=== PATIENT | female | born 1975 | race Caucasian/White ===

== ENCOUNTER 2019-01-24 15:59 | Emergency (ER) | payer OTHER ==
[~2019-01-24] VITALS: Ht 160 cm; Wt 74.8 kg
--- OUTSIDE RECORDS SUMMARY | 2019-01-24 16:02 | XMS REPORT ---
Author Author Admin, Chalmers Organization Unknown Address Unknown Phone Unavailable PROBLEMS Condition Status Date Provider Notes Tinea corporis active Connie Funez Pelvic pain, acute active Grace [place] UTI, acute active Grace [place] Pelvic inflammatory disease, acute active Connie Funez UTI (urinary tract infection) completed - Connie Funez Bacterial vaginitis active Connie Funez HSV active Connie Funez Infection skin and soft tissue completed - Connie Funez Mariia of vagina completed - Connie Funez Bacterial vaginitis completed - Connie Funez Screening visit for sexually trans dis active Connie Funez BMI 28.0-28.9 active Senait Leti Overweight active Senait Leti Sacroiliac joint pain, left active Senait Leti Breast pain, left completed - Connie Funez Vaginal discharge completed - Senait Leti Bacterial vaginitis completed - Senait Leti Abnormal genitourinary finding completed - Connie Funez Hx of ovarian cyst active Connie Funez Routine gynecological exam completed - Senait Leti General counseling for initiation of other contraceptive measures completed - Connie Funez Vaginitis and vulvovaginitis, unspecified completed - Connie Funez Routine gynecological examination completed - Connie Funez ENCOUNTERS Date Type Provider Location Encounter Diagnosis - Ambulatory Encounter Connie Funez Connie Funez [facility] UNK - Ambulatory Encounter Connie Funez Connie Funez [facility] UNK - Ambulatory Encounter Connie Blancojada Monalisa Pedro Amandara Cueva [facility] Tinea corporis - Ambulatory Encounter Grace Radha Garcia [facility] UNK - Ambulatory Encounter Amanda Boudreaux Alyssia Oreilly Monalisa Chinmay Hart [facility] UNK - Ambulatory Encounter Amanda Boudreaux Connie Funez Connie Funez Alyssia Oreilly Monalisa Chinmay [place] [facility] Contact Center UNK - Ambulatory Encounter Grace Radha Edwards Radha [facility] UNK - Ambulatory Encounter Grace Edwards Radha [facility] UNK - Ambulatory Encounter Grace Radha Garcia [facility] UNK - Ambulatory Encounter Grace Radhalizandro Edwards Radha Amanda Cueva [facility] UTI, acutePelvic pain, acute - Ambulatory Encounter Clariceronak Wright [facility] Services UNK - Ambulatory Encounter Clariceronak Guevarah Funez Alyssia Oreilly Lorrie Liriano [facility] Contact Center UNK - Ambulatory Encounter Connie Guevarah Funez [facility] UNK - Ambulatory Encounter Clarice Sanchezarleth Crooks Nelson [facility] UNK - Ambulatory Encounter Clarice Nelson [facility] UNK - Ambulatory Encounter Connie Funez [facility] UNK - Ambulatory Encounter Connie Funez [facility] UNK - Ambulatory Encounter Connie Funez [facility] UNK - Ambulatory Encounter Connie Sheldon Pedro [facility] UTI (urinary tract infection)Pelvic inflammatory disease, acute - Ambulatory Encounter Connie Funez [facility] HSVBacterial vaginitis - Ambulatory Encounter Connie Funez [facility] UNK - Ambulatory Encounter Connie Funez [facility] UNK - Ambulatory Encounter Connie Funez [facility] UTI (urinary tract infection) - Ambulatory Encounter Connie Funez [facility] UNK - Ambulatory Encounter Connie Funez [facility] UNK - Ambulatory Encounter Connie Wright [facility] Bacterial vaginitisCandida of vaginaInfection skin and soft tissueHSVBacterial vaginitisUTI (urinary tract infection) - Ambulatory Encounter Connie Funez Connie Funez Monalisa White [facility] UNK - Ambulatory Encounter Connie Funez Connie Funez [facility] UNK - Ambulatory Encounter Monalisa White [facility] UNK - Ambulatory Encounter Monalisa White [facility] UNK - Ambulatory Encounter Connie Funez Connie Funez [facility] UNK - Ambulatory Encounter Connie Funez Connie Funez [facility] UNK - Ambulatory Encounter Connie Funez Connie Funez Talya Marley [facility] Infection skin and soft tissue - Ambulatory Encounter Senait Landeros [facility] Connie Funez Connie Funez [facility] UNK - Ambulatory Encounter Connie Funez Connie Funez [facility] Bacterial vaginitisCandida of vagina - Ambulatory Encounter Connie Funez Connie Funez [facility] UNK - Ambulatory Encounter Connie Funez Connie Funez [facility] UNK - Ambulatory Encounter Connie Funez Connie Funez Monalisa Pedro [facility] General counseling for initiation of other contraceptive measuresAbnormal genitourinary findingBreast pain, leftScreening visit for sexually trans disBacterial vaginitis - Ambulatory Encounter Senait Landeros [facility] UNK - Ambulatory Encounter [facility] En[facility] Fax Status [facility] - Ambulatory Encounter Fax Status [facility] - Ambulatory Encounter Fax Status [facility] UNK - Ambulatory Encounter Fax Status [facility] UNK - Ambulatory Encounter Fax Status [facility] UNK - Ambulatory Encounter Fax Status [facility] UNK - Ambulatory Encounter Fax Status [facility] UNK - Ambulatory [facility] - Ambulatory Encounter Fax Status [facility] - Ambulatory Encounter F[facility] Status [facility] Fax Status [facility] - Ambulatory Encounter Senait Leti Senait Leti [facility] UNK - Ambulatory Encounter Senait Leti Sen[facility] Leti [facility] - Ambulatory Encounter Senait Leti Senait Leti [facility] - Ambulatory Encounter Senait Leti Senait Leti Rajani Angel Johnsonalee Jhaveri Cliff Robin [facility] Routine gynecological examBacterial vaginitisVaginal dischargeBreast pain, leftSacroiliac joint pain, leftOverweightBMI 28.0-28.9 - Ambulatory Encounter Rajani Wright [facility] UNK - Ambulatory Encounter Connie Funez [facility] UNK - Ambulatory Encounter Connie Funez [facility] UNK - Ambulatory Encounter Grace Clintontier [facility] UNK - Ambulatory Encounter Grace Garcia [facility] UNK - Ambulatory Encounter Grace Garcia [facility] UNK - Ambulatory Encounter Grace Garcia [facility] UNK - Ambulatory Encounter Grace Garcia [facility] UNK - Ambulatory Encounter Grace Wright [facility] Vaginal discharge - Ambulatory Encounter Isabel Velazquez [facility] UNK - Ambulatory Encounter Connie Funez [facility] Bacterial vaginitis - Ambulatory Encounter Connie Funez [facility] UNK - Ambulatory Encounter Connie Funez Connie Funez [facility] UNK - Ambulatory Encounter Connie Guevarah Funez Shantal Malhotra [facility] Vaginitis and vulvovaginitis, unspecifiedBacterial vaginitis - Ambulatory Encounter Shantal Malhotra [facility] UNK - Ambulatory Encounter Grace Garcia [facility] UNK - Ambulatory Encounter Grace Garcia [facility] UNK - Ambulatory Encounter Shantal [facility]illy [facility] UNK - Ambulatory Encounter Connie Funez Connie Funez [facility] UNK - Ambulatory Encounter Connie Funez Connie Funez [facility] UNK - Ambulatory Encounter Connie Funez Connie Funez Britt Tabares [facility] Abnormal genitourinary finding - Ambulatory Encounter Shantal Malhotra [facility] UNK - Ambulatory Encounter Connie Funez Connie Funez [facility] UNK - Ambulatory Encounter Connie Funez Connie Funez [facility] UNK - Ambulatory Encounter Monalisa Pedro [facility] UNK - Ambulatory Encounter Connie Funez Connie Funez [facility] UNK - Ambulatory Encounter Connie Funez Connie Funez [facility] UNK - Ambulatory Encounter Connie Funez Connie Funez [facility] UNK - Ambulatory Encounter Connie Funez Connie Funez Aida Vo Monalisa Pedro Amandara Boudreaux [facility] Routine gynecological examinationGeneral counseling for initiation of other contraceptive measuresRoutine gynecological examHx of ovarian cyst - Ambulatory Encounter Grace Clintontier [facility] UNK - Ambulatory Encounter Mike [facility] Grace Clintontier [facility] UNK - Ambulatory Encounter Amanda Boudreaux [facility] UNK - Ambulatory Encounter Mike Garcia [facility] OB Vaginitis and vulvovaginitis, unspecified - Ambulatory Encounter Mike Garcia [facility] UNK - Ambulatory Encounter Mike Garcia [facility] UNK - Ambulatory Encounter Mike Garcia [facility] UNK - Ambulatory Encounter Rajani Bermudez [facility] UNK - Ambulatory Encounter Mike Garcia Dona Nguyen [facility] Routine gynecological examination VITAL SIGNS No Information Available Allergies No Known Allergy Information REASON FOR REFERRAL Start Date - End Date Service - Ultrasound - Transvaginal - Ultrasound - Breast - Mammogram - Diagnostic RESULTS Date Observation Value Provider Reference Range Interpretation Location urine culture Multiple organisms present, each less than 10,000 [facility] [address] [facility] [id number] John Gupta glucose, urine, semiquantitative negative Amanda Cueva " specific gravity, urine 1.020 Amanda Cueva " protein, urine, semiquantitative (dipstick) negative Amanda Cueva " leukocyte esterase, urine, by dipstick negative Amanda Cueva " bilirubin, urine negative Amanda Cueva " blood in urine (hemoglobin) by dipstick negative Amanda Cueva " urobilinogen, urine, semiquantitative (dipstick) negative Amanda Cueva " appearance, urine clear Amanda Cueva " ketones, urine, by test strip negative Amanda Cueva " pH, urine, semiquantitative 5.0 Amanda Cueva " nitrite, urine, semiquantitative negative Amanad Cueva " urine color light yellow Amanda Cueva " beta HCG, urine, semiquantitative negative Amanda Cueva Neisseria gonorrhoeae DNA probe Negative [facility] Negative " chlamydia DNA probe Negative [facility] Negative " trichomonas vaginalis, urine Negative [facility] Negative urine culture Escherichia coli [facility] Abnormal glucose, urine, semiquantitative negative Amanda Cueva " specific gravity, urine 1.025 Amanda Cueva " protein, urine, semiquantitative (dipstick) trace Amanda Cueva " leukocyte esterase, urine, by dipstick negative Amanda Cueva " bilirubin, urine 1+ Amanda Cueva " blood in urine (hemoglobin) by dipstick negative Amanda Cueva " urobilinogen, urine, semiquantitative (dipstick) negative Amanda Cueva " appearance, urine clear Amanda Cueva " ketones, urine, by test strip negative Amanda Cueva " pH, urine, semiquantitative 5.0 Amanda Cueva " nitrite, urine, semiquantitative negative Aamnda Cueva " urine color orange Amanda Cueva " beta HCG, urine, semiquantitative negative Amanda Cueva Neisseria gonorrhoeae DNA probe Negative [facility] Negative " chlamydia DNA probe Negative [facility] Negative urine culture No growth [facility] beta HCG, urine, semiquantitative negative Connie Funez " specific gravity, urine 1.025 Monalisa Pedro " pH, urine, semiquantitative 6.0 Monalisa Pedro " glucose, urine, semiquantitative negative Monalisa Pedro " bilirubin, urine negative Monalisa Pedro " ketones, urine, by test strip negative Monalisa Pedro " blood in urine (hemoglobin) by dipstick 2+ Monalisa Pedro " protein, urine, semiquantitative (dipstick) negative Monalisa Pedro " urobilinogen, urine, semiquantitative (dipstick) negative Monalisa Pedro " nitrite, urine, semiquantitative negative Monalisa Pedro " leukocyte esterase, urine, by dipstick negative Monalisa Pedro " appearance, urine clear Monalisa Pedro " urine color yellow Monalisa Pedro Neisseria gonorrhoeae DNA probe Negative [facility] Negative " chlamydia DNA probe Negative [facility] Negative " trichomonas vaginalis, urine Negative [facility] Negative urine culture Escherichia coli [facility] Abnormal specific gravity, urine 1.005 Rajani Wright " pH, urine, semiquantitative 5.0 Rajani Wright " glucose, urine, semiquantitative negative Rajani Wright " bilirubin, urine negative Rajani Wright " ketones, urine, by test strip negative Rajani Wright " blood in urine (hemoglobin) by dipstick 5 Rajani Wright " protein, urine, semiquantitative (dipstick) 30 Rajani Wright " urobilinogen, urine, semiquantitative (dipstick) 4.0 Rajani Wright " nitrite, urine, semiquantitative positive Rajani Wright " leukocyte esterase, urine, by dipstick 10 Rajani Wright " appearance, urine clear Rajani Wright " urine color yellow Rajani Wright glucose, urine, semiquantitative negative Talya Marley " bilirubin, urine negative Talya Marley " ketones, urine, by test strip negative Talya Marley " blood in urine (hemoglobin) by dipstick negative Talya Marley " protein, urine, semiquantitative (dipstick) negative Talya Marley " urobilinogen, urine, semiquantitative (dipstick) negative Talya Marley " nitrite, urine, semiquantitative negative Talya Marley " leukocyte esterase, urine, by dipstick negative Talya Marley " appearance, urine clear Talya Marley " urine color yellow Talya Marley Neisseria gonorrhoeae DNA probe Negative [facility] Negative " chlamydia DNA probe Negative [facility] Negative " trichomonas vaginalis, urine Negative [facility] Negative pH, urine, semiquantitative 6.0 Monalisa Pedro " specific gravity, urine 1.005 Monalisa Pedro " glucose, urine, semiquantitative negative Monalisa Pedro " bilirubin, urine negative Monalisa Pedro " ketones, urine, by test strip negative Monalisa Pedro " blood in urine (hemoglobin) by dipstick negative Monalisa Pedro " protein, urine, semiquantitative (dipstick) negative Monalisa Pedro " urobilinogen, urine, semiquantitative (dipstick) negative Monalisa Pedro " nitrite, urine, semiquantitative negative Monalisa Pedro " leukocyte esterase, urine, by dipstick trace Monalisa Pedro " appearance, urine clear Monalisa Pedro " urine color yellow Monalisa Pedro trichomonas vaginalis, urine Negative [facility] Negative beta HCG, urine, semiquantitative negative Rajani Wright " specific gravity, urine 1.015 Rajani Wright " pH, urine, semiquantitative 5.5 Rajani Wright " glucose, urine, semiquantitative negative Rajani Wright " bilirubin, urine negative Rajani Wright " ketones, urine, by test strip negative Rajani Wright " blood in urine (hemoglobin) by dipstick negative Rajani Wright " protein, urine, semiquantitative (dipstick) 1+ Rajani Wright " urobilinogen, urine, semiquantitative (dipstick) negative Rajani Wright " nitrite, urine, semiquantitative negative Rajani Wright " leukocyte esterase, urine, by dipstick 2+ Rajani Wright " appearance, urine clear Rajani Wright " urine color yellow Rajani Wright trichomonas vaginalis, urine Negative [facility] Negative specific gravity, urine 1.015 Shantal Malhotra " pH, urine, semiquantitative 6.0 Shantal Malhotra " beta HCG, urine, semiquantitative negative Shantal Malhotra " glucose, urine, semiquantitative negative Shantal Malhotra " bilirubin, urine negative Shantal Malhotra " ketones, urine, by test strip negative Shantal Malhotra " blood in urine (hemoglobin) by dipstick negative Shantal Malhotra " protein, urine, semiquantitative (dipstick) trace Shantal Malhotra " urobilinogen, urine, semiquantitative (dipstick) negative Shantal Malhotra " nitrite, urine, semiquantitative negative Shantal Malhotra " leukocyte esterase, urine, by dipstick negative Shantal Malhotra " appearance, urine clear Shantal Malhotra " urine color yellow Shantal Malhotra hepatitis B surface antigen Negative [facility] Negative " rapid plasma reagin antibody, serum Non Reactive [facility] Non Reactive " hepatitis C antibody, serum <0.1 [facility] 0.0-0.9 " HIV-CMIA (Chemiluminescent Microparticle Immuno Assay) Non Reactive [facility] Non Reactive " LDL cholesterol, serum 100 mg/dL [facility] 0-99 High " very low density lipoproteins 16 mg/dL [facility] 5-40 " HDL cholesterol, serum 68 mg/dL [facility] >39 " triglyceride, serum, fasting 82 mg/dL [facility] 0-149 " cholesterol, serum 184 mg/dL [facility] 100-199 " alanine aminotransferase (SGPT), serum 16 1/L [facility] 0-32 " aspartate aminotransferase (SGOT), serum 18 1/L [facility] 0-40 " alkaline phosphatase, serum 50 1/L [facility] 39-117 " bilirubin, serum, total 0.3 mg/dL [facility] 0.0-1.2 " albumin/globulin ratio, serum 1.6 [facility] 1.1-2.5 " globulin, serum 2.7 [facility] 1.5-4.5 " albumin, serum 4.3 g/dL [facility] 3.5-5.5 " protein, total, serum 7.0 g/dL [facility] 6.0-8.5 " calcium, serum 9.5 mg/dL [facility] 8.7-10.2 " carbon dioxide, venous blood 24 mmol/L [facility] 18-29 " chloride, serum 100 mmol/L [facility] 96-106 " potassium, serum 5.3 mmol/L [facility] 3.5-5.2 High " sodium, serum 138 mmol/L [facility] 134-144 " urea nitrogen/creatinine ratio, serum 13 [facility] 8-20 " eGFR if 108 mL/min/((173/100).m2) [facility] >59 " Estimated Glomerular Filtration Rate (calc) 94 mL/min/((173/100).m2) [facility] >59 " creatinine, serum 0.80 mg/dL [facility] 0.57-1.00 " urea nitrogen, blood 10 mg/dL [facility] 6-20 " blood glucose, random 88 mg/dL [facility] 65-99 " immature granulocytes, percentage of total cells, blood 0 % [facility] " basophil count, absolute 0.0 x10E3/uL [facility] 0.0-0.2 " Eosinophil Absolute Count 0.2 X10E3/UL [facility] 0.0-0.4 " monocyte count, blood, automated 0.6 X10E3/UL [facility] 0.1-0.9 " lymphocyte count, blood, automated 2.3 X10E3/UL [facility] 0.7-3.1 " Absolute Neutrophils 4.6 X10E3/UL [facility] 1.4-7.0 " basophils as percent of blood leukocytes 0 % [facility] " eosinophils as percent of blood leukocytes 2 % [facility] " monocytes as percent of blood leukocytes 7 % [facility] " lymphocytes as percent of blood leukocytes 30 % [facility] " neutrophils as percent of blood leukocytes 61 % [facility] " platelet count 357 X10E3/UL [facility] 150-379 " red blood cell distribution width 13.0 % [facility] 12.3-15.4 " mean corpuscular hemoglobin concentration, RBC 34.4 G/DL [facility] 31.5-35.7 " mean corpuscular hemoglobin, RBC 31.5 pg [facility] 26.6-33.0 " mean corpuscular volume, RBC 92 fL [facility] 79-97 " hematocrit, blood 38.1 % [facility] 34.0-46.6 " hemoglobin, blood 13.1 g/dL [facility] 11.1-15.9 " erythrocyte (RBC) count 4.16 X10E6/UL [facility] 3.77-5.28 " leukocyte count, blood 7.7 X10E3/UL [facility] 3.4-10.8 specific gravity, urine 1.010 Britt Tabares " pH, urine, semiquantitative 6.0 Britt Tabares " beta HCG, urine, semiquantitative negative Britt Tabares " glucose, urine, semiquantitative negative Britt Tabares " bilirubin, urine negative Britt Tabares " ketones, urine, by test strip negative Britt Tabares " blood in urine (hemoglobin) by dipstick negative Britt Tabares " protein, urine, semiquantitative (dipstick) 1+ Britt Tabares " urobilinogen, urine, semiquantitative (dipstick) negative Britt Tabares " nitrite, urine, semiquantitative negative Britt Tabares " leukocyte esterase, urine, by dipstick negative Britt Tabares " appearance, urine clear Britt Tabares " urine color yellow Britt Tabares Neisseria gonorrhoeae DNA probe Negative [facility] Negative " chlamydia DNA probe Negative [facility] Negative beta HCG, urine, semiquantitative negative Connie Funez urine culture No growth [facility] " hepatitis B surface antigen Negative [facility] Negative " rapid plasma reagin antibody, serum Non Reactive [facility] Non Reactive " hepatitis C antibody, serum <0.1 [facility] 0.0-0.9 " HIV-CMIA (Chemiluminescent Microparticle Immuno Assay) Non Reactive [facility] Non Reactive " thyroid stimulating hormone, serum 2.430 u[iU]/mL [facility] 0.450-4.500 " Neisseria gonorrhoeae DNA probe Negative [facility] Negative " chlamydia DNA probe Negative [facility] Negative " LDL cholesterol, serum 115 mg/dL [facility] 0-99 High " very low density lipoproteins 13 mg/dL [facility] 5-40 " HDL cholesterol, serum 59 mg/dL [facility] >39 " triglyceride, serum, fasting 65 mg/dL [facility] 0-149 " cholesterol, serum 187 mg/dL [facility] 100-199 " alanine aminotransferase (SGPT), serum 16 1/L [facility] 0-32 " aspartate aminotransferase (SGOT), serum 19 1/L [facility] 0-40 " alkaline phosphatase, serum 58 1/L [facility] 39-117 " bilirubin, serum, total 0.2 mg/dL [facility] 0.0-1.2 " albumin/globulin ratio, serum 1.8 [facility] 1.1-2.5 " globulin, serum 2.6 [facility] 1.5-4.5 " albumin, serum 4.6 g/dL [facility] 3.5-5.5 " protein, total, serum 7.2 g/dL [facility] 6.0-8.5 " calcium, serum 9.6 mg/dL [facility] 8.7-10.2 " carbon dioxide, venous blood 26 mmol/L [facility] 18-29 " chloride, serum 100 mmol/L [facility] 97-108 " potassium, serum 4.5 mmol/L [facility] 3.5-5.2 " sodium, serum 138 mmol/L [facility] 134-144 " urea nitrogen/creatinine ratio, serum 13 [facility] 8-20 " eGFR if 114 mL/min/((173/100).m2) [facility] >59 " Estimated Glomerular Filtration Rate (calc) 99 mL/min/((173/100).m2) [facility] >59 " creatinine, serum 0.77 mg/dL [facility] 0.57-1.00 " urea nitrogen, blood 10 mg/dL [facility] 6-20 " blood glucose, random 102 mg/dL [facility] 65-99 High " immature granulocytes, percentage of total cells, blood 0 % [facility] " basophil count, absolute 0.0 x10E3/uL [facility] 0.0-0.2 " Eosinophil Absolute Count 0.2 X10E3/UL [facility] 0.0-0.4 " monocyte count, blood, automated 0.4 X10E3/UL [facility] 0.1-0.9 " lymphocyte count, blood, automated 2.3 X10E3/UL [facility] 0.7-3.1 " Absolute Neutrophils 4.4 X10E3/UL [facility] 1.4-7.0 " basophils as percent of blood leukocytes 1 % [facility] " eosinophils as percent of blood leukocytes 3 % [facility] " monocytes as percent of blood leukocytes 5 % [facility] " lymphocytes as percent of blood leukocytes 31 % [facility] " neutrophils as percent of blood leukocytes 60 % [facility] " platelet count 375 X10E3/UL [facility] 150-379 " red blood cell distribution width 13.9 % [facility] 12.3-15.4 " mean corpuscular hemoglobin concentration, RBC 31.8 G/DL [facility] 31.5-35.7 " mean corpuscular hemoglobin, RBC 30.6 pg [facility] 26.6-33.0 " mean corpuscular volume, RBC 96 fL [facility] 79-97 " hematocrit, blood 40.3 % [facility] 34.0-46.6 " hemoglobin, blood 12.8 g/dL [facility] 11.1-15.9 " erythrocyte (RBC) count 4.18 X10E6/UL [employer] 3.77-5.28 " leukocyte count, blood 7.4 X10E3/UL [employer] 3.4-10.8 glucose, urine, semiquantitative negative Dona Nguyen " bilirubin, urine negative Dona Nguyen " ketones, urine, by test strip negative Dona Nguyen " blood in urine (hemoglobin) by dipstick negative Dona Nguyen " protein, urine, semiquantitative (dipstick) negative Dona Nguyen " urobilinogen, urine, semiquantitative (dipstick) negative Dona Nguyen " nitrite, urine, semiquantitative negative Dona Nguyen " leukocyte esterase, urine, by dipstick negative Dona Nguyen " appearance, urine clear Dona Nguyen " urine color yellow Dona Nguyen HISTORY OF IMMUNIZATIONS No Information Available HISTORY OF MEDICATION USE Medication Instructions Dates Provider Comments KETOCONAZOLE 2 % EXTERNAL SHAMPOO Apply to head once a day for 1 week - Connie Funez CEPHALEXIN 500 MG ORAL CAPSULE 1 capsule by mouth twice a day for 7 days - Connie Funez MACROBID 100 MG ORAL CAPSULE 1 tab By Mouth bid - Connie Funez NUVARING 0.12-0.015 MG/24HR VAGINAL RING Insert for vaginal ring for 3 weeks. Remove on 4th week - Connie Funez DOXYCYCLINE MONOHYDRATE 100 MG ORAL CAPSULE 1 capsule by mouth twice a day for 14 days - Connie Funez METRONIDAZOLE 500 MG ORAL TABLET 1 tablet by mouth twice a day for 14 days - Connie Funez VALACYCLOVIR HCL 1 GM ORAL TABLET 1 tablet by mouth daily for 5 days - Connie Funez METRONIDAZOLE 500 MG ORAL TABLET 1 tablet by mouth twice a day for 7 days. No alcohol for 10 days - Connie Ufnez NITROFURANTOIN MONOHYD MACRO 100 MG ORAL CAPSULE 1 capsule by mouth twice a day for 7 days - Connie Funez FLUCONAZOLE 150 MG ORAL TABLET 1 tablet by mouth one time dose - Connie Funez BACTRIM DS 800-160 MG ORAL TABLET 1 tablet by mouth twice a day for 5 days - Connie Funez FLUCONAZOLE 150 MG ORAL TABLET 1 tablet by mouth one times dose - Connie Funez BACTRIM DS 800-160 MG ORAL TABLET 1 tablet by mouth twice a day for 5 days - Connie Funez FLUCONAZOLE 150 MG ORAL TABLET 1 tablet by mouth one time dose - Connie Funez METRONIDAZOLE 500 MG ORAL TABLET 1 tablet by mouth twice a day for 7 days - Connie Funez NUVARING 0.12-0.015 MG/24HR VAGINAL RING Insert vaginal ring for 3 weeks. Remove on 4th week. Then repeat - Senait Leti MACROBID 100 MG ORAL CAPSULE 1 tab by mouth twice a day - Grace Radha TERCONAZOLE 0.4 % VAGINAL CREAM 1 applicator per vagina once a night - Grace Clintontier METRONIDAZOLE 500 MG ORAL TABLET Take 1 tablet by mouth twice a day for 7 days. No alcohol for 10 days - Connie Funez SPRINTEC 28 0.25-35 MG-MCG ORAL TABLET 1 tab By Mouth qd - Grace Radha NUVARING 0.12-0.015 MG/24HR VAGINAL RING 1 ring per vagina for 3 weeks. Remove on 4th week. - Grace Radha NUVARING 0.12-0.015 MG/24HR VAGINAL RING 1 ring inside vagina for 3 weeks. Remove on 4th week. Repeat - Connie Funez FLAGYL 500 MG ORAL TABLET take one By Mouth BID - Connie Funez SOCIAL HISTORY Date Observation Value Provider Exercise Program Referral Ольга Funez " Weight Management Counseling Provided T Connie Funez " Nutrition intervention T Connie Funez " sexual orientation Heterosexual Monalisa Pedro " is there any chance that you could be ? No Monalisa Pedro " assessment of health literacy ([facility] 2014 Standards, 3C10) Adequate Monalisa Pedro " passive cigarette smoke exposure No Monalisa Pedro " smoking status never smoker Monalisaeduardo Pedro time of call 12/19/2018 9:39 AM Fina Hart time of call 12/16/2018 4:08 PM Luisa Worthington passive cigarette smoke exposure No Amanda Cueva time of call 10/25/2018 4:27 PM Rosalia Wright time of call 09/19/2018 7:22 AM Lorrie Rivas Exercise Program Referral T Connie Funez " Weight Management Counseling Provided T Connie Funez " Nutrition intervention T Connie Funez " sexual orientation Heterosexual Monalisa Pedro " is there any chance that you could be ? No Monalisa Pedro " assessment of health literacy ([facility] 2014 Standards, 3C10) Adequate Monalisa Pedro " passive cigarette smoke exposure No Monalisa Pedro " smoking status never smoker Monalisa Pedro Exercise Program Referral T Connie Funez " Weight Management Counseling Provided T Connie Funez " Nutrition intervention T Connie Funez " sexual orientation Heterosexual Rajani Wright " assessment of health literacy ([facility] 2014 Standards, 3C10) Adequate Rajani Wright " is there any chance that you could be ? No Rajani Wright " passive cigarette smoke exposure No Rajani Wright " drug use, illicit Never Rajani Wright " alcohol use Never Rajani Wright " smoking status never smoker Rajani Kyle " social history reviewed E&M reviewed today Rajani Wright Exercise Program Referral T Connie Funez " Weight Management Counseling Provided T Connie Funez " Nutrition intervention T Connie Funez " social history reviewed E&M reviewed today Talya Marley " sexual orientation Heterosexual Talya Marley " assessment of health literacy ([facility] 2014 Standards, 3C10) Adequate Talya Marley " is there any chance that you could be ? No Talya Marley " smoking status never smoker Talya Marley " passive cigarette smoke exposure No Talya Marley Exercise Program Referral T Connie Funez " Weight Management Counseling Provided T Connie Funez " Nutrition intervention T Connie Funez " sexual orientation Heterosexual Monalisa Pedro " assessment of health literacy ([facility] 2014 Standards, 3C10) Adequate Monalisa Pedro " is there any chance that you could be ? No Monalisa Pedro " passive cigarette smoke exposure No Monalisa Pedro " smoking status never smoker Monalisa Pedro family support lives with daughter and mother Senait Leti " social history reviewed E&M reviewed today Rajani Ortiz " is there any chance that you could be ? No Rajani Ortiz " passive cigarette smoke exposure No Rajani Ortiz " smoking status never smoker Rajani Ortiz " assessment of health literacy ([facility] 2014 Standards, 3C10) Adequate Rajani Ortiz " Exercise Program Referral T Rajani Ortiz " Weight Management Counseling Provided T Rajani Ortiz " Nutrition intervention T Rajani Ortiz social history reviewed E&M reviewed today Rajani Wright " is there any chance that you could be ? No Rajani Wright " passive cigarette smoke exposure No Rajani Wright " smoking status never smoker Rajani Wright " assessment of health literacy ([facility] 2014 Standards, 3C10) Adequate Rajani Wright assessment of health literacy ([facility] 2014 Standards, 3C10) Adequate Shantal Roscoe " drug use, illicit Never Shantal Malhotra " alcohol use Never Shantal Malhotra " is there any chance that you could be ? No Shantal Malhotra " sexual orientation Heterosexual Shantal Malhotra " passive cigarette smoke exposure No Shantal Malhotra " smoking status never smoker Shantal Malhotra time of call 03/21/2016 12:31 PM Crissy Temple passive cigarette smoke exposure No Britt Tabares " drug use, illicit Never Britt Tabares " alcohol use Never Britt Tabares " is there any chance that you could be ? No Britt Tabares " smoking status never smoker Britt Tabares Exercise Program Referral T Connie Funez " Weight Management Counseling Provided T Connie Funez " Nutrition intervention T Connie Funez " smoke detector present in home Yes Connie Funez " helmet use when riding No Connie Funez " seatbelt usage Yes Connie Funez " is there any chance that you could be ? No Monalisa Pedro " passive cigarette smoke exposure No Monalisa Pedro " smoking status never smoker Monalisa Pedro time of call 10/21/2014 9:12 AM Amanda Boudreaux smoke detector present in home Yes Dona Nguyen " helmet use when riding No Dona Nguyen " seatbelt usage Yes Dona Nguyen " I do not always have enough money to buy food with Yes Dona Nguyen " fiber intake Yes Dona Nguyen " fat intake per day Yes Dona Nguyen " iron intake per day Yes Dona Nguyen " exercise type none Dona Nguyen " tobacco use (cigarettes, cigar, chew, pipe) Never Dona Nguyen " social history - sexual practice Pt. was involved with 7 partners Dona Nguyen " sex at female Dona Nguyen " patient considered to be homeless Yes Dona Nguyen " drug use, illicit Never Dona Nguyen " alcohol use Never Dona Nguyen " is there any chance that you could be ? No Dona Nguyen " passive cigarette smoke exposure No Dona Nguyen " smoking status never smoker Dona Nguyen " Exercise Program Referral T Dona Nguyen " Weight Management Counseling Provided T Dona Nguyen " Nutrition intervention T Dona Nguyen FUNCTIONAL STATUS No Information Available MENTAL STATUS Date Observation Value Provider assessment of judgment and insight E&M intact Connie Funez " mental status examination: orientation E&M oriented to time, place, and person Connie Funez " assessment of mood and affect E&M no depression, anxiety, or agitation Connie Funez " Generalized Anxiety Disorder Questionnaire - Question 2 0 Monalisa Pedro " Generalized Anxiety Disorder Questionnaire - Question 1 0 Monalisa Pedro assessment of judgment and insight E&M intact Connie Funez " mental status examination: orientation E&M oriented to time, place, and person Connie Funez " assessment of mood and affect E&M no depression, anxiety, or agitation Connie Funez " Generalized Anxiety Disorder Questionnaire - Question 2 0 Monalisa Pedro " Generalized Anxiety Disorder Questionnaire - Question 1 0 Monalisa Pedro assessment of judgment and insight E&M intact Connie Funez " mental status examination: orientation E&M oriented to time, place, and person Connie Funez " assessment of mood and affect E&M no depression, anxiety, or agitation Connie Funez " Generalized Anxiety Disorder Questionnaire - Question 2 0 Rajani Wright " Generalized Anxiety Disorder Questionnaire - Question 1 0 Rajani Wright assessment of judgment and insight E&M intact Connie Funez " mental status examination: orientation E&M oriented to time, place, and person Connie Funez " assessment of mood and affect E&M no depression, anxiety, or agitation Connie Funez " Generalized Anxiety Disorder Questionnaire - Question 2 0 Talya Marley " Generalized Anxiety Disorder Questionnaire - Question 1 0 Talya Marley assessment of judgment and insight E&M intact Connie Funez " mental status examination: orientation E&M oriented to time, place, and person Connie Funez " assessment of mood and affect E&M no depression, anxiety, or agitation Connie Funez " Generalized Anxiety Disorder Questionnaire - Question 2 0 Monalisa Pedro " Generalized Anxiety Disorder Questionnaire - Question 1 0 Monalisa Pedro Generalized Anxiety Disorder Questionnaire - Question 2 0 Rajani Ortiz " Generalized Anxiety Disorder Questionnaire - Question 1 0 Rajani Ortiz Generalized Anxiety Disorder Questionnaire - Question 2 0 Rajani Wright " Generalized Anxiety Disorder Questionnaire - Question 1 0 Rajani Wright assessment of judgment and insight E&M intact Connie Funez " Generalized Anxiety Disorder Questionnaire - Question 2 0 Shantal Malhotra " Generalized Anxiety Disorder Questionnaire - Question 1 0 Shantal Malhotra assessment of judgment and insight E&M intact Connie Funez " assessment of mood and affect E&M no depression, anxiety, or agitation Connie Funez " Generalized Anxiety Disorder Questionnaire - Question 2 0 Brittwin Tabares " Generalized Anxiety Disorder Questionnaire - Question 1 0 Britt Tabares assessment of judgment and insight E&M intact Connie Funez " assessment of mood and affect E&M no depression, anxiety, or agitation Connie Funez " Generalized Anxiety Disorder Questionnaire - Question 2 0 Monalisaeduardo Pedro " Generalized Anxiety Disorder Questionnaire - Question 1 0 Monalisa Pedro assessment of judgment and insight E&M intact Mike Garcia " assessment of mood and affect E&M no depression, anxiety, or agitation Mike Garcia " Generalized Anxiety Disorder Questionnaire - Question 2 0 Dona Nguyen " Generalized Anxiety Disorder Questionnaire - Question 1 0 Dona Nguyen MEDICAL EQUIPMENT No Information Available FAMILY HISTORY No Information Available INSURANCE PROVIDERS Payer name Policy type / Coverage type Covered republican [employer] ([facility] Medicaid [id number] ADVANCE DIRECTIVES No Information Available TREATMENT PLAN Date Name Urine Culture, Routine Vaginitis/Vaginosis, DNA Probe (Affirm) ([facility]) Gc/Ct/Trich Urine Culture, Routine Gc/Ct/Trich Urine Culture, Routine HSV TRAMAINE ([facility]) Gc/Ct/Trich Vaginitis/Vaginosis, DNA Probe (Affirm) ([facility]) Urine Culture, Routine Vaginitis/Vaginosis, DNA Probe (Affirm) ([facility]) Gc/Ct/Trich Vaginitis/Vaginosis, DNA Probe (Affirm) Urine Culture, Routine Vaginitis/Vaginosis, DNA Probe (Affirm) Comp. Metabolic Panel (14) RPR Lipid Panel HIV 1/2 ANTIGEN/ANTIBODY, FOURTH GENERATION W/RFL HCV Antibody HBsAg Screen Chlamydia/GC Amplification CBC With Differential/Platelet Urine Culture, Routine TSH Comp. Metabolic Panel (14) RPR Pap IG, HPV-hr (30+) Lipid Panel HIV 1/2 ANTIGEN/ANTIBODY, FOURTH GENERATION W/RFL HCV Antibody HBsAg Screen Chlamydia/GC Amplification CBC With Differential/Platelet - - - - Urinalysis - Dip only - In House Est Patient Exp Problem - 85965 Est Patient Exp Problem - 89116 Urinalysis - Dip only - In House Urinalysis - - In House Urinalysis - Dip only - In House Est Patient Exp Problem - 51036 Urinalysis - Dip only - In House Est Patient Exp Problem - 84807 Est Patient Exp Problem - 41574 Urinalysis - Dip only - In House Est Patient Exp Problem - 19480 Est Patient Exp Problem - 92869 Est Patient Exp Problem - 81287 Urinalysis - Dip only - In House Urinalysis - - In House Est Patient Exp Problem - 68269 Urinalysis - - In House Urinalysis - Dip only - In House Est Patient Exp Problem - 11771 Urinalysis - - In House Est Patient Well Exam (18 - 39 Yrs) - 83188 Handling of specimen for transfer Venipuncture Urinalysis - Dip only - In House New Patient Well Exam (18 - 39 Yrs) - 96020 HISTORY OF PROCEDURES Procedure Date Procedure Name Provider Procedure Notes Status Urinalysis - Dip only - In House Connie Funez completed Urinalysis - Dip only - In House Grace Garcia completed Urinalysis - - In House Connie Funez completed Urinalysis - Dip only - In House Connie Funez completed Urinalysis - Dip only - In House Connie Funez completed Urinalysis - Dip only - In House Connie Funez completed Urinalysis - Dip only - In House Connie Funez completed Urinalysis - - In House Connie Funez completed Urinalysis - - In House Connie Funez completed Urinalysis - Dip only - In House Connie Funez completed Urinalysis - - In House Connie Funez completed Venipuncture Mike Garcia completed Urinalysis - Dip only - In House Mike Garcia completed GOALS No Information Available HEALTH CONCERNS No Information Available
== END 2019-01-24 16:28 | disposition home or self-care (01) ==
LOC: FSED 15:59
DX: M06.031 Rheumatoid arthritis without rheumatoid factor, right wrist (principal)
CPT/HCPCS: 99283